=== PATIENT | female | born 1995 | race Two or more races ===

== ENCOUNTER 2017-09-09 21:52 | Observation (INO) | payer MEDICAID, OTHER | END 2017-09-09 22:36 | disposition left against medical advice (07) | DRG 566 | LOC: LDRP 21:52 → UNDODISOB 22:36 | PROVIDERS: ADMIT Obstetrics & Gynecology; ATTEND Obstetrics & Gynecology | DX: O42.90 Premature rupture of membranes, unspecified as to length of time between rupture and onset of labor, unspecified weeks of gestation (principal); Z3A.00 Weeks of gestation of pregnancy not specified | CPT/HCPCS: 59025; 81002; G0378 ==